=== PATIENT | male | born 1970 | race Caucasian/White ===

== ENCOUNTER → 2019-05-09 09:29 | Outpatient (CLI) | payer BC ==
--- NOTE | ~2019-05-09 | ST ---
PATIENT:SCOT VALENTE MEDICAL RECORD: [id number] SEX: M LOCATION:[facility] ORDER #: ADMISSION DATE: 05/09/19 AGE OF PATIENT: 49 REFERRING PHYSICIAN: INTERPRETING PHYSICIAN: HOLLAND LEE MD DATE OF SERVICE: 05/09/2019 PROCEDURE: Nuclear stress test. INDICATIONS: Coronary artery disease. Family history of coronary artery disease. [employer] Stress Testing: The patient was exercised under Reza protocol for 10 minutes 25 seconds achieving greater than 85% max target heart rate response with no EKG changes, no dysrhythmias, no anginal symptomatology, 33 mCi of sestamibi were used at peak stress, 11 mCi used previously for rest images. FINDINGS: Gated SPECT reveals preserved ejection fraction at 60% with good wall motion and thickening and brightening throughout all segments. SPECT Imaging: Cardiolite was used as myocardial fusion agent. There is homogeneous uptake throughout all segments at rest and stress with no evidence of inducible ischemia or previous infarction. OVERALL IMPRESSION: 1. This is a normal nuclear stress test with no evidence of inducible ischemia or previous infarction. 2. Gated SPECT reveals a preserved ejection fraction at 60%. In this patient with ongoing symptomatology, the current scan does not suggest the presence of hemodynamically significant coronary artery disease. Evaluate noncardiac etiology of chest pain. TRANSINT:[id number] Voice Confirmation ID: [id number] DOCUMENT ID: [id number] HOLLAND LEE MD CC: [id number] DICTATION DATE: 05/09/19 1317 MANAGER MECHANICAL MAINTENANCE: 05/10/19 0250 DEP CLI 05/09/19 [facility] [address] [id number]
== END | disposition home or self-care (01) ==
LOC: D.HCCARDIO 09:29
PROVIDERS: ATTEND Internal Medicine Cardiovascular Disease
DX: I25.10 Atherosclerotic heart disease of native coronary artery without angina pectoris (principal)